=== PATIENT | male | born 1935 | race Two or more races ===

== ENCOUNTER 2018-11-23 07:40 | Day surgery (SDC) | payer OTHER ==
[2018-11-23] MEDS ORDERED: CEFAZOLIN 2 GM/50 ML (PMX) 50 ML IVPB (08:00)
[2018-11-23] MEDS ORDERED: SOD CHLORIDE 0.9% 1,000 ML IV (08:00)
[2018-11-23] MEDS ORDERED: BUPIVACAINE 0.25% (MPF) 30 ML INJ (10:20)
[2018-11-23] MEDS ORDERED: LIDOCAINE 2% (SDV) 5 ML INJ (10:43)
[2018-11-23] MEDS ORDERED: PROPOFOL 20 ML (10:43)
[2018-11-23] MEDS ORDERED: FENTAnyl 50 MCG/ML VIAL (10:44)
[2018-11-23] MEDS ORDERED: CEFAZOLIN 1 GM INJ (10:54)
[2018-11-23] MEDS ORDERED: FENTAnyl 50 MCG/ML VIAL IV (11:00)
[2018-11-23] MEDS ORDERED: LIDOCAINE 1% (MPF) 30 ML INJ (11:00)
[2018-11-23] MEDS ORDERED: MEPERIDINE 25 MG INJ IV (11:00)
[2018-11-23] MEDS ORDERED: ONDANSETRON 4 MG INJ IV (11:00)
[2018-11-23] MEDS ORDERED: HYDROmorphONE 1 MG/5 ML IV SYRINGE IV ×2 (11:00)
[2018-11-23] MEDS ORDERED: OXYCODONE/ACETAMINOPHEN (5/325) TAB PO (11:00)
[2018-11-23] MEDS ORDERED: PROCHLORPERAZINE 10 MG INJ IV (11:00)
[2018-11-23] MEDS ORDERED: DIPHENHYDRAMINE 50 MG INJ IV (11:00)
[2018-11-23] MEDS ORDERED: ONDANSETRON 4 MG INJ (11:24)
[2018-11-23] MEDS: LIDOCAINE 2% (MDV) 20 ML INJ (11:30)
[2018-11-23] MEDS: BUPIVACAINE 0.5% (SDV) 30 ML INJ (11:30)
[2018-11-23] MEDS: HYDROCODONE/APAP (5/325) TAB PO (13:10)
== END 2018-11-23 13:10 | disposition home or self-care (01) ==
LOC: SDS 07:40
DX: D18.01 Hemangioma of skin and subcutaneous tissue (principal); D17.22 Benign lipomatous neoplasm of skin and subcutaneous tissue of left arm; I10 Essential (primary) hypertension; I48.91 Unspecified atrial fibrillation
CPT/HCPCS: 14021; 88307; 93005